=== PATIENT | female | born 2000 | race Hispanic/Latino ===

== ENCOUNTER 2023-10-29 10:04 | Emergency (ER) | payer SELFPAY ==
[2023-10-29 10:08] VITALS: BP 103/61; PULSE 84; RESP 16; TEMP 38; O2SAT 100
--- NOTE | 2023-10-29 10:45 | ED.GENADULT ---
HPI - General Adult General Chief complaint: Skin/Abscess/Foreign Body <Nicholas Hinojosa PA-C - Last Filed: 10/29/23 18:33> Stated complaint: Wart/blister like bumps covering whole body <Nicholas Hinojosa PA-C - Last Filed: 10/29/23 18:33> Time Seen by Provider: 10/29/23 10:44 <OPAL Lopez Last Filed: 10/29/23 18:33> Source: patient and sign language interpreter <OPAL Lopez Last Filed: 10/29/23 18:33> Mode of arrival: ambulatory <OPAL Lopez Last Filed: 10/29/23 18:33> Limitations: language barrier <OPAL Lopez Last Filed: 10/29/23 18:33> History of Present Illness HPI narrative: This is a 23-year-old female who presents to the ED with chief complaint of blistering rash the started 5 days ago. Patient reports she has been feeling generally unwell and had a subjective fever a few days ago. States that she has had a sore throat as well. States the blisters are painful. Reports this started in the face and upper body and has since spread throughout the extremities. <OPAL Lopez Last Filed: 10/29/23 18:33> Related Data Allergies/adverse reactions: Allergies Allergy/AdvReac Type Severity Reaction Status Date / Time No Known Allergies Allergy Verified 10/29/23 10:06 <OPAL Lopez Last Filed: 10/29/23 18:33> Review of Systems Review of Systems: All systems as dictated in HPI <OPAL Lopez Last Filed: 10/29/23 18:33> Exam Narrative: GENERAL: Well-appearing, well-nourished, and in no acute distress. Nontoxic appearing HEAD: Normocephalic, atraumatic. EYES: PERRLA and EOMI. ENT: Nares clear, no rhinorrhea or epistaxis. Mucous membranes moist. Oropharynx without tonsillar hypertrophy exudate or other lesions. NECK: Supple. No adenopathy or masses. CHEST: No respiratory distress. Clear to auscultation. No wheezes rales or rhonchi HEART: Regular rate and rhythm. No murmur heard. Normal peripheral pulses. ABDOMEN: Soft, nontender, nondistended, normal active bowel sounds. MSK: Normal range of motion. No edema. SKIN: Diffuse vesicular bullous rash, most concentrated on the face and head. Lesions very from very small 1 mm blisters to larger 10 mm blisters. Most lesions are umbilicated. No surrounding erythema. There is mucosal involvement of the mouth. The skin does not slough. NEURO: Alert and oriented x3. No focal deficits. PSYCH: Normal mood and affect. <Nicholas Hinojosa PA-C - Last Filed: 10/29/23 18:33> Course CAPSULE FILLING MACHINE OPERATOR/PA Physician Supervision For this patient encounter, I reviewed the CAPSULE FILLING MACHINE OPERATOR or PA documentation, treatment plan, and medical decision making; and I had [id number] time with this patient. <Calderon Armenta MD - Last Filed: 10/29/23 21:02> Vital Signs Vital signs: Vital Signs Temperature 100.4 F H 10/29/23 10:08 Pulse Rate 84 10/29/23 10:08 Respiratory Rate 16 10/29/23 10:08 Blood Pressure 103/61 10/29/23 10:08 Pulse Oximetry 100 10/29/23 10:08 Oxygen Delivery Room Air 10/29/23 10:08 Temperature 99 F 10/29/23 12:18 Pulse Rate 78 10/29/23 12:18 Respiratory Rate 16 10/29/23 12:18 Blood Pressure 103/61 10/29/23 10:08 Pulse Oximetry 98 10/29/23 12:18 Oxygen Delivery Room Air 10/29/23 10:08 <Nicholas Hinojosa PA-C - Last Filed: 10/29/23 18:33> Vital Signs Temperature 100.4 F H 10/29/23 10:08 Pulse Rate 84 10/29/23 10:08 Respiratory Rate 16 10/29/23 10:08 Blood Pressure 103/61 10/29/23 10:08 Pulse Oximetry 100 10/29/23 10:08 Oxygen Delivery Room Air 10/29/23 10:08 Temperature 99 F 10/29/23 12:18 Pulse Rate 78 10/29/23 12:18 Respiratory Rate 16 10/29/23 12:18 Blood Pressure 103/61 10/29/23 10:08 Pulse Oximetry 98 10/29/23 12:18 Oxygen Delivery Room Air 10/29/23 10:08 <Calderon Armenta MD - Last Filed: 10/29/23 21:02> Medical Decision Making MDM Narrative Medical decision making narrative:
[2023-10-29 10:55] LABS: Influenza A QL RT-PCR Negative (Negative); Influenza B QL RT-PCR Negative (Negative); RSV RNA, RT-PCR Negative (Negative); SARS-CoV-2 RNA PCR Negative (Negative)
[2023-10-29 11:44] LABS: Basophils Percent Auto 0.2 % (0.2-1.2); Eosinophils Percent Auto 0.2 % (0-4.4); Hematocrit 39.9 % (37.0-47.0); Hemoglobin 13.7 g/dL (12.0-15.0); Immature Granulocyte Absolute 0.02 K/mm3 (0.00-0.031); Immature Granulocyte Percent A 0.5 % (0-0.5); Lymphocytes Absolute Auto 0.56 K/mm3 (0.9-3.2); Lymphocytes Percent Auto 12.9 % (18.3-44.2); Mean Corpuscular HGB Conc 34.3 g/dl (32-36); Mean Corpuscular Hemoglobin 31.2 pg (26-34); Mean Corpuscular Volume 90.9 fl (80-100); Mean Platelet Volume 9.2 fl (7.4-10.4); Monocytes Absolute Auto 0.2 K/mm3 (0.1-0.6); Monocytes Percent Auto 5.5 % (2.6-8.5); Neutrophils Absolute Auto 3.5 K/mm3 (1.3-6.7); Neutrophils Percent Auto 80.7 % (45.5-73.1); Platelet Count Result 218 k/mm3 (150-375); Red Blood Count 4.39 M/mm3 (4.2-5.4); Red Cell Distribution Width 12.1 % (11.5-14.5); White Blood Count 4.3 K/mm3 (4.5-10.0)
[2023-10-29 11:54] LABS: Alanine Aminotransferase 68 U/L (6-35); Albumin Level 4.5 g/dL (3.5-5.1); Alkaline Phosphatase 118 U/L (38-126); Anion Gap 7 mmol/L (4-12); Aspartate Amino Transferase 66 U/L (14-36); Bilirubin,Total 0.4 mg/dL (0.2-1.3); Blood Urea Nitrogen 6 mg/dL (7-17); Calcium 9.1 mg/dL (8.4-10.2); Carbon Dioxide 26 mmol/L (22-30); Chloride 105 mmol/L (98-107); Estimated Glomerular Filt Rate > 60; Glucose 107 mg/dL (65-110); Potassium 4.1 mmol/L (3.4-5.0); Sodium 138 mmol/L (137-145)
[2023-10-29 12:18] VITALS: PULSE 78; RESP 16; TEMP 37.2; O2SAT 98
[2023-10-31 22:09] LABS: Varicella IgM Antibody 1.86
== END 2023-10-29 12:20 | disposition home or self-care (01) ==
PROVIDERS: Emergency Medicine; Emergency Provider Physician Assistant
DX: B09 Unspecified viral infection characterized by skin and mucous membrane lesions (principal); Z20.822 Contact with and (suspected) exposure to COVID-19
CPT/HCPCS: 36415; 80053; 85025; 86787; 87637; 99283